=== PATIENT | female | born 1960 | race African-American/Black ===

== ENCOUNTER 2022-07-12 22:02 | Emergency (ER) | payer MEDICAID ==
[~2022-07-12] VITALS: Ht 160 cm; Wt 64.5 kg
[2022-07-12] MEDS ORDERED: ACETAMINOPHEN 325MG TABLET PO STA (23:16)
[2022-07-12] MEDS ORDERED: SODIUM CHLORIDE 0.9% 1,000 ML IV ONE (23:30)
[2022-07-12 23:36] LABS: BASOPHILS % 0.5 % (0.0-2.0); EOSINOPHILS % 5.1 % (0.0-5.0); HEMATOCRIT. 37.5 % (36.0-48.0); HEMOGLOBIN. 12.5 g/dL (12.0-16.0); MEAN CORPUSCULAR HEMOGLOBIN 29.1 pg (28.0-32.0); MEAN CORPUSCULAR VOLUME 87.2 fL (81.0-99.0); MEAN PLATELET VOLUME 8.2 fl (7.4-10.4); MONOCYTES % 7.4 % (2.0-8.0); PLATELET 192 x1000/uL (130-400)
[2022-07-12 23:42] LABS: CHLORIDE 107 mEq/L (98-107)
[2022-07-12 23:58] LABS: PROTHROMBIN TIME 10.6 sec (9.6-11.0)
[2022-07-13] MEDS ORDERED: NIFEDIPINE XL 60MG TAB PO NR (00:30)
[2022-07-13 01:07] LABS: CLARITY URINE CLEAR (CLEAR); COLOR URINE YELLOW (YELLOW); KETONES URINE NEGATIVE (NEGATIVE); LEUKOCYTE ESTERASE URINE NEGATIVE (NEGATIVE); NITRITE URINE NEGATIVE (NEGATIVE); OCCULT BLOOD URINE NEGATIVE (NEGATIVE); PROTEIN URINE NEGATIVE (NEGATIVE); SPECIFIC GRAVITY URINE 1.003 (1.005-1.030); UROBILINOGEN URINE 0.2 E.U./dL (0.2-1.0)
[2022-07-13] MEDS ORDERED: ACET-2708 MT (02:20)
[2022-07-13 02:55] VITALS: BP 142/102
== END 2022-07-13 03:04 | disposition home or self-care (01) ==
LOC: ER 22:02
DX: R10.12 Left upper quadrant pain (principal); I10 Essential (primary) hypertension; J45.909 Unspecified asthma, uncomplicated
CPT/HCPCS: 36415; 74176; 80053; 81003; 83605; 83690; 85025; 85610; 96360; 99285; J7030